=== PATIENT | female | born 1985 ===

== ENCOUNTER 2025-07-04 13:48 | Outpatient (REF) | payer BC, SELFPAY ==
--- NOTE | 2025-07-04 11:15 | PAPFT_PTH ---
PATIENT: Arelis Marley LOC: [facility] U#:[id number] AGE/SX: 40/F ROOM: RE07/04/[address]: Kaylen Hung : 1985 BED: DIS: 07/04/2025 SPEC #: [id number] RECD: 07/05/25 12:36 STATUS: DONYA REQ #: [id number] MARY: 07/04/25 11:[address]: Kaylen Hung DEPT: [facility] Cytology RECD BY: Kinza Oviedo ENTERED: 07/05/25 12:36 SP TYPE: PAPFT OTHR DR: Unknown,Unknown Tissues: 1 - CX/ENDOCX FOR PAP SMEARS Procedures: PAP THIN PREP/[facility] Screening HPV DNA PROBE Comments: [id number] (HPV 16 & 18/45)
[2025-07-04 22:10] LABS: Cholesterol 159 mg/dL (<200); HDL Cholesterol 97 mg/dL (>or=50)
[2025-07-04 22:13] LABS: Hemoglobin A1C 4.8 % (<5.7)
== END 2025-07-04 13:49 | disposition home or self-care (01) ==
LOC: NCHCN 13:48
PROVIDERS: Visit Provider Family Medicine
DX: Z00.00 Encounter for general adult medical examination without abnormal findings (principal); Z13.220 Encounter for screening for lipoid disorders; Z13.6 Encounter for screening for cardiovascular disorders; Z13.1 Encounter for screening for diabetes mellitus; Z12.4 Encounter for screening for malignant neoplasm of cervix
CPT/HCPCS: 80061; 88142; 83036; 87624